=== PATIENT | male | born 1995 | race Caucasian/White ===

== ENCOUNTER → 2020-11-25 | Outpatient (CLI) | payer OTHER | LOC: KOH-I 10:28 | DX: M51.36 Other intervertebral disc degeneration, lumbar region (principal); R10.84 Generalized abdominal pain; M47.816 Spondylosis without myelopathy or radiculopathy, lumbar region | CPT/HCPCS: 72100; 74019 ==

== ENCOUNTER → 2020-12-04 | Outpatient (CLI) | payer OTHER | LOC: EMI 08:43 → KOH-I 08:43 → EMI 09:00 | DX: R10.84 Generalized abdominal pain (principal) | CPT/HCPCS: 70551; 76700 ==

== ENCOUNTER → 2021-12-03 | Outpatient (CLI) | payer OTHER | LOC: KOH-I 09:40 | DX: R10.84 Generalized abdominal pain (principal); K76.0 Fatty (change of) liver, not elsewhere classified | CPT/HCPCS: 76700 ==